=== PATIENT | male | born 1945 | race Caucasian/White ===

== ENCOUNTER 2018-02-01 11:19 | Outpatient (CLI) | payer MEDICARE | END 2018-02-01 11:20 | disposition home or self-care (01) | LOC: LABHHL 11:19 | PROVIDERS: ATTEND Internal Medicine | DX: E11.9 Type 2 diabetes mellitus without complications (principal); I10 Essential (primary) hypertension | CPT/HCPCS: 36415; 83036 ==

== ENCOUNTER 2018-12-17 09:09 | Outpatient (CLI) | payer MEDICARE ==
[2018-12-17 11:38] LABS: Chol/HDL Ratio 3.79 %
== END 2018-12-17 09:10 | disposition home or self-care (01) ==
LOC: LAB 09:09
PROVIDERS: ATTEND Internal Medicine
DX: Z00.01 Encounter for general adult medical examination with abnormal findings (principal); I10 Essential (primary) hypertension; E11.9 Type 2 diabetes mellitus without complications; E78.5 Hyperlipidemia, unspecified
CPT/HCPCS: 36415; 80061; 83036

== ENCOUNTER 2019-04-07 08:16 | Outpatient (CLI) | payer MEDICARE ==
[2019-04-07 09:19] LABS: Hematocrit 43.1 % (35.5-45.6); Hemoglobin 14.7 gm/dl (11.8-15.2); Mean Corpuscular HGB Conc 34 % (32-34); Mean Corpuscular Volume 89 fl (84-94); Platelet Count 185 K/mm3 (140-440); Red Blood Count 4.82 M/mm3 (3.65-5.03); Red Cell Distribution Width 13.6 % (13.2-15.2)
[2019-04-07 09:31] LABS: Albumin 4.1 g/dL (3.9-5); Chol/HDL Ratio 4.35 %
[2019-04-11 14:00] LABS: Vitamin D, 25-OH, D2 <4 ng/mL
== END 2019-04-07 08:17 | disposition home or self-care (01) ==
LOC: LAB 08:16
PROVIDERS: ATTEND Internal Medicine
DX: Z13.21 Encounter for screening for nutritional disorder (principal); Z12.5 Encounter for screening for malignant neoplasm of prostate; E11.39 Type 2 diabetes mellitus with other diabetic ophthalmic complication; E78.5 Hyperlipidemia, unspecified; I10 Essential (primary) hypertension
CPT/HCPCS: 36415; 80053; 80061; 82306; 82607; 83036; 84153; 84443; 85027

== ENCOUNTER 2019-05-10 14:44 | Outpatient (CLI) | payer MEDICARE ==
--- NOTE | 2019-05-10 15:25 | XRay Report ---
LEFT WRIST, 3 VIEWS INDICATION: Pain in left wrist. COMPARISON: None. IMPRESSION: Mild osteopenia. No acute osseous findings or joint pathology is identified. There is m ild diffuse soft tissue swelling. Signer Name: Tye Finley Jr, MD Signed: 05/10/2019 3:21 PM Workstation Name: [id number]
== END 2019-05-10 14:45 | disposition home or self-care (01) ==
LOC: XRAY 14:44
PROVIDERS: ATTEND Internal Medicine
DX: M85.842 Other specified disorders of bone density and structure, left hand (principal); I10 Essential (primary) hypertension

== ENCOUNTER 2019-08-18 09:19 | Outpatient (CLI) | payer MEDICARE | END 2019-08-18 09:20 | disposition home or self-care (01) | LOC: LAB 09:19 | PROVIDERS: ATTEND Internal Medicine | DX: E78.5 Hyperlipidemia, unspecified (principal); R94.6 Abnormal results of thyroid function studies; E11.9 Type 2 diabetes mellitus without complications | CPT/HCPCS: 36415; 80061; 83036; 84439; 84443 ==

== ENCOUNTER 2020-05-14 10:06 | Outpatient (CLI) | payer MEDICARE ==
[2020-05-14] MEDS ORDERED: LIDOCAINE (4%) 40 MG/ML TOPICAL SOLN 50 ML BOTTLE TP ONE (11:00)
== END 2020-05-14 10:07 | disposition home or self-care (01) ==
LOC: WOUND 10:06
PROVIDERS: ATTEND Surgery
DX: E11.622 Type 2 diabetes mellitus with other skin ulcer (principal); L89.154 Pressure ulcer of sacral region, stage 4; L98.422 Non-pressure chronic ulcer of back with fat layer exposed; E11.621 Type 2 diabetes mellitus with foot ulcer; L97.522 Non-pressure chronic ulcer of other part of left foot with fat layer exposed; I10 Essential (primary) hypertension; E78.5 Hyperlipidemia, unspecified; Z79.4 Long term (current) use of insulin

== ENCOUNTER 2020-05-28 08:53 | Outpatient (CLI) | payer MEDICARE ==
[2020-05-28] MEDS ORDERED: LIDOCAINE (4%) 40 MG/ML TOPICAL SOLN 50 ML BOTTLE TP ONE (10:00)
[2020-05-28] MEDS ORDERED: LIDOCAINE (1%) 10 MG/1 ML VIAL 20 ML MDV INFILTRATI NR (10:00)
[2020-05-28] MEDS ORDERED: SILVER NITRATE APPLICATOR 1 EA TP NR (10:04)
== END 2020-05-28 08:54 | disposition home or self-care (01) ==
LOC: WOUND 08:53
PROVIDERS: ATTEND Surgery
DX: E11.622 Type 2 diabetes mellitus with other skin ulcer (principal); L89.154 Pressure ulcer of sacral region, stage 4; L98.422 Non-pressure chronic ulcer of back with fat layer exposed; I10 Essential (primary) hypertension; E78.5 Hyperlipidemia, unspecified; Z79.4 Long term (current) use of insulin
CPT/HCPCS: 97605

== ENCOUNTER 2020-06-04 09:20 | Outpatient (CLI) | payer MEDICARE ==
[2020-06-04] MEDS ORDERED: LIDOCAINE (4%) 40 MG/ML TOPICAL SOLN 50 ML BOTTLE TP NR (09:29)
== END 2020-06-04 09:21 | disposition home or self-care (01) ==
LOC: WOUND 09:20
PROVIDERS: ATTEND Surgery
DX: E11.622 Type 2 diabetes mellitus with other skin ulcer (principal); L89.154 Pressure ulcer of sacral region, stage 4; L98.422 Non-pressure chronic ulcer of back with fat layer exposed; I10 Essential (primary) hypertension; E78.5 Hyperlipidemia, unspecified; Z79.4 Long term (current) use of insulin
CPT/HCPCS: 97605

== ENCOUNTER 2020-06-11 10:32 | Outpatient (CLI) | payer MEDICARE ==
[2020-06-11] MEDS ORDERED: LIDOCAINE (4%) 40 MG/ML TOPICAL SOLN 50 ML BOTTLE TP ONE (10:38)
== END 2020-06-11 10:33 | disposition home or self-care (01) ==
LOC: WOUND 10:32
PROVIDERS: ATTEND Surgery
DX: E11.622 Type 2 diabetes mellitus with other skin ulcer (principal); L89.314 Pressure ulcer of right buttock, stage 4; L98.415 Non-pressure chronic ulcer of buttock with muscle involvement without evidence of necrosis; L89.154 Pressure ulcer of sacral region, stage 4; L98.421 Non-pressure chronic ulcer of back limited to breakdown of skin; I10 Essential (primary) hypertension; E78.5 Hyperlipidemia, unspecified; Z79.4 Long term (current) use of insulin
CPT/HCPCS: 97605

== ENCOUNTER 2020-06-15 09:25 | Outpatient (CLI) | payer MEDICARE | END 2020-06-15 09:26 | disposition home or self-care (01) | LOC: WOUND 09:25 | PROVIDERS: ATTEND Surgery | DX: E11.622 Type 2 diabetes mellitus with other skin ulcer (principal); L89.314 Pressure ulcer of right buttock, stage 4; L98.415 Non-pressure chronic ulcer of buttock with muscle involvement without evidence of necrosis; L89.154 Pressure ulcer of sacral region, stage 4; L98.421 Non-pressure chronic ulcer of back limited to breakdown of skin; I10 Essential (primary) hypertension; E78.5 Hyperlipidemia, unspecified; Z79.4 Long term (current) use of insulin | CPT/HCPCS: 97605 ==

== ENCOUNTER 2020-06-18 09:29 | Outpatient (CLI) | payer MEDICARE ==
[2020-06-18] MEDS ORDERED: LIDOCAINE (4%) 40 MG/ML TOPICAL SOLN 50 ML BOTTLE TP SCH (10:30)
== END 2020-06-18 09:30 | disposition home or self-care (01) ==
LOC: WOUND 09:29
PROVIDERS: ATTEND Surgery
DX: E11.622 Type 2 diabetes mellitus with other skin ulcer (principal); L89.314 Pressure ulcer of right buttock, stage 4; L98.415 Non-pressure chronic ulcer of buttock with muscle involvement without evidence of necrosis; L89.154 Pressure ulcer of sacral region, stage 4; L98.421 Non-pressure chronic ulcer of back limited to breakdown of skin; I10 Essential (primary) hypertension; E78.5 Hyperlipidemia, unspecified; Z79.4 Long term (current) use of insulin
CPT/HCPCS: 97605

== ENCOUNTER 2020-06-22 08:58 | Outpatient (CLI) | payer MEDICARE | END 2020-06-22 08:59 | disposition home or self-care (01) | LOC: WOUND 08:58 | PROVIDERS: ATTEND Surgery | DX: E11.622 Type 2 diabetes mellitus with other skin ulcer (principal); L89.314 Pressure ulcer of right buttock, stage 4; L98.415 Non-pressure chronic ulcer of buttock with muscle involvement without evidence of necrosis; L89.154 Pressure ulcer of sacral region, stage 4; L98.421 Non-pressure chronic ulcer of back limited to breakdown of skin; I10 Essential (primary) hypertension; E78.5 Hyperlipidemia, unspecified; Z79.4 Long term (current) use of insulin | CPT/HCPCS: 97605 ==

== ENCOUNTER 2020-06-25 09:27 | Outpatient (CLI) | payer MEDICARE ==
[2020-06-25] MEDS ORDERED: LIDOCAINE (4%) 40 MG/ML TOPICAL SOLN 50 ML BOTTLE TP ONE (10:01)
== END 2020-06-25 09:28 | disposition home or self-care (01) ==
LOC: WOUND 09:27
PROVIDERS: ATTEND Surgery
DX: E11.622 Type 2 diabetes mellitus with other skin ulcer (principal); L89.314 Pressure ulcer of right buttock, stage 4; L98.415 Non-pressure chronic ulcer of buttock with muscle involvement without evidence of necrosis; L89.154 Pressure ulcer of sacral region, stage 4; L98.421 Non-pressure chronic ulcer of back limited to breakdown of skin; I10 Essential (primary) hypertension; E78.5 Hyperlipidemia, unspecified; Z79.4 Long term (current) use of insulin
CPT/HCPCS: 97605

== ENCOUNTER 2020-06-29 08:52 | Outpatient (CLI) | payer MEDICARE | END 2020-06-29 08:53 | disposition home or self-care (01) | LOC: WOUND 08:52 | PROVIDERS: ATTEND Surgery | DX: E11.622 Type 2 diabetes mellitus with other skin ulcer (principal); L89.314 Pressure ulcer of right buttock, stage 4; L98.415 Non-pressure chronic ulcer of buttock with muscle involvement without evidence of necrosis; L98.421 Non-pressure chronic ulcer of back limited to breakdown of skin; I10 Essential (primary) hypertension; E78.5 Hyperlipidemia, unspecified; Z79.4 Long term (current) use of insulin | CPT/HCPCS: 97605 ==

== ENCOUNTER 2020-07-02 09:55 | Outpatient (CLI) | payer MEDICARE ==
[2020-07-02] MEDS ORDERED: LIDOCAINE (4%) 40 MG/ML TOPICAL SOLN 50 ML BOTTLE TP SCH (09:58)
== END 2020-07-02 09:56 | disposition home or self-care (01) ==
LOC: WOUND 09:55
PROVIDERS: ATTEND Surgery
DX: E11.622 Type 2 diabetes mellitus with other skin ulcer (principal); L89.314 Pressure ulcer of right buttock, stage 4; L98.412 Non-pressure chronic ulcer of buttock with fat layer exposed; I10 Essential (primary) hypertension; E78.5 Hyperlipidemia, unspecified; Z79.4 Long term (current) use of insulin
CPT/HCPCS: 97605

== ENCOUNTER 2020-07-06 08:19 | Outpatient (CLI) | payer MEDICARE | END 2020-07-06 08:20 | disposition home or self-care (01) | LOC: WOUND 08:19 | PROVIDERS: ATTEND Surgery | DX: E11.622 Type 2 diabetes mellitus with other skin ulcer (principal); L89.314 Pressure ulcer of right buttock, stage 4; L98.412 Non-pressure chronic ulcer of buttock with fat layer exposed; I10 Essential (primary) hypertension; E78.5 Hyperlipidemia, unspecified; Z79.4 Long term (current) use of insulin | CPT/HCPCS: 97605 ==

== ENCOUNTER 2020-07-09 09:35 | Outpatient (CLI) | payer MEDICARE ==
[2020-07-09] MEDS ORDERED: LIDOCAINE (4%) 40 MG/ML TOPICAL SOLN 50 ML BOTTLE TP SCH (09:37)
== END 2020-07-09 09:36 | disposition home or self-care (01) ==
LOC: WOUND 09:35
PROVIDERS: ATTEND Surgery
DX: E11.622 Type 2 diabetes mellitus with other skin ulcer (principal); L89.314 Pressure ulcer of right buttock, stage 4; L98.412 Non-pressure chronic ulcer of buttock with fat layer exposed; L89.154 Pressure ulcer of sacral region, stage 4; L98.491 Non-pressure chronic ulcer of skin of other sites limited to breakdown of skin; I10 Essential (primary) hypertension; E78.5 Hyperlipidemia, unspecified; Z79.4 Long term (current) use of insulin
CPT/HCPCS: 97605

== ENCOUNTER 2020-07-13 09:10 | Outpatient (CLI) | payer MEDICARE | END 2020-07-13 09:11 | disposition home or self-care (01) | LOC: WOUND 09:10 | PROVIDERS: ATTEND Surgery | DX: E11.622 Type 2 diabetes mellitus with other skin ulcer (principal); L89.314 Pressure ulcer of right buttock, stage 4; L98.412 Non-pressure chronic ulcer of buttock with fat layer exposed; L89.154 Pressure ulcer of sacral region, stage 4; L98.491 Non-pressure chronic ulcer of skin of other sites limited to breakdown of skin; I10 Essential (primary) hypertension; E78.5 Hyperlipidemia, unspecified; Z79.4 Long term (current) use of insulin | CPT/HCPCS: 97605 ==

== ENCOUNTER 2020-07-16 10:09 | Outpatient (CLI) | payer MEDICARE ==
[2020-07-16] MEDS ORDERED: LIDOCAINE (4%) 40 MG/ML TOPICAL SOLN 50 ML BOTTLE TP ONE (10:36)
== END 2020-07-16 10:10 | disposition home or self-care (01) ==
LOC: WOUND 10:09
PROVIDERS: ATTEND Surgery
DX: E11.622 Type 2 diabetes mellitus with other skin ulcer (principal); L89.314 Pressure ulcer of right buttock, stage 4; L98.412 Non-pressure chronic ulcer of buttock with fat layer exposed; L89.154 Pressure ulcer of sacral region, stage 4; L98.491 Non-pressure chronic ulcer of skin of other sites limited to breakdown of skin; I10 Essential (primary) hypertension; E78.5 Hyperlipidemia, unspecified; Z79.4 Long term (current) use of insulin
CPT/HCPCS: 97605

== ENCOUNTER 2020-07-20 08:52 | Outpatient (CLI) | payer MEDICARE | END 2020-07-20 08:53 | disposition home or self-care (01) | LOC: WOUND 08:52 | PROVIDERS: ATTEND Surgery | DX: E11.622 Type 2 diabetes mellitus with other skin ulcer (principal); L89.314 Pressure ulcer of right buttock, stage 4; L98.412 Non-pressure chronic ulcer of buttock with fat layer exposed; L89.154 Pressure ulcer of sacral region, stage 4; L98.491 Non-pressure chronic ulcer of skin of other sites limited to breakdown of skin; I10 Essential (primary) hypertension; E78.5 Hyperlipidemia, unspecified; Z79.4 Long term (current) use of insulin | CPT/HCPCS: 97605 ==

== ENCOUNTER 2020-07-23 09:26 | Outpatient (CLI) | payer MEDICARE ==
[2020-07-23] MEDS ORDERED: LIDOCAINE (4%) 40 MG/ML TOPICAL SOLN 50 ML BOTTLE TP ONE (10:30)
== END 2020-07-23 09:27 | disposition home or self-care (01) ==
LOC: WOUND 09:26
PROVIDERS: ATTEND Surgery
DX: E11.622 Type 2 diabetes mellitus with other skin ulcer (principal); L89.314 Pressure ulcer of right buttock, stage 4; L98.412 Non-pressure chronic ulcer of buttock with fat layer exposed; L89.154 Pressure ulcer of sacral region, stage 4; L98.491 Non-pressure chronic ulcer of skin of other sites limited to breakdown of skin; I10 Essential (primary) hypertension; E78.5 Hyperlipidemia, unspecified; Z79.4 Long term (current) use of insulin
CPT/HCPCS: 97605

== ENCOUNTER 2020-07-25 08:13 | Outpatient (CLI) | payer MEDICARE | END 2020-07-25 08:14 | disposition home or self-care (01) | LOC: WOUND 08:13 | PROVIDERS: ATTEND Surgery | DX: E11.622 Type 2 diabetes mellitus with other skin ulcer (principal); L89.314 Pressure ulcer of right buttock, stage 4; L98.412 Non-pressure chronic ulcer of buttock with fat layer exposed; L89.154 Pressure ulcer of sacral region, stage 4; L98.491 Non-pressure chronic ulcer of skin of other sites limited to breakdown of skin; I10 Essential (primary) hypertension; E78.5 Hyperlipidemia, unspecified; Z79.4 Long term (current) use of insulin | CPT/HCPCS: 97605 ==

== ENCOUNTER 2020-07-30 09:17 | Outpatient (CLI) | payer MEDICARE | END 2020-07-30 09:18 | disposition home or self-care (01) | LOC: WOUND 09:17 | PROVIDERS: ATTEND Surgery | DX: E11.622 Type 2 diabetes mellitus with other skin ulcer (principal); L89.314 Pressure ulcer of right buttock, stage 4; L98.412 Non-pressure chronic ulcer of buttock with fat layer exposed; L89.154 Pressure ulcer of sacral region, stage 4; L98.491 Non-pressure chronic ulcer of skin of other sites limited to breakdown of skin; I10 Essential (primary) hypertension; E78.5 Hyperlipidemia, unspecified; Z79.4 Long term (current) use of insulin | CPT/HCPCS: 97605 ==

== ENCOUNTER 2020-08-03 08:42 | Outpatient (CLI) | payer MEDICARE | END 2020-08-03 08:43 | disposition home or self-care (01) | LOC: WOUND 08:42 | PROVIDERS: ATTEND Surgery | DX: E11.622 Type 2 diabetes mellitus with other skin ulcer (principal); L89.314 Pressure ulcer of right buttock, stage 4; L98.412 Non-pressure chronic ulcer of buttock with fat layer exposed; L89.154 Pressure ulcer of sacral region, stage 4; L98.491 Non-pressure chronic ulcer of skin of other sites limited to breakdown of skin; I10 Essential (primary) hypertension; E78.5 Hyperlipidemia, unspecified; Z79.4 Long term (current) use of insulin | CPT/HCPCS: 97605 ==

== ENCOUNTER 2020-08-06 09:19 | Outpatient (CLI) | payer MEDICARE ==
[2020-08-06] MEDS ORDERED: LIDOCAINE (4%) 40 MG/ML TOPICAL SOLN 50 ML BOTTLE TP ONE (09:38)
== END 2020-08-06 09:20 | disposition home or self-care (01) ==
LOC: WOUND 09:19
PROVIDERS: ATTEND Surgery
DX: E11.622 Type 2 diabetes mellitus with other skin ulcer (principal); L89.314 Pressure ulcer of right buttock, stage 4; L98.412 Non-pressure chronic ulcer of buttock with fat layer exposed; L89.154 Pressure ulcer of sacral region, stage 4; L98.492 Non-pressure chronic ulcer of skin of other sites with fat layer exposed; I10 Essential (primary) hypertension; E78.5 Hyperlipidemia, unspecified; Z79.4 Long term (current) use of insulin
CPT/HCPCS: 97605

== ENCOUNTER 2020-08-09 08:01 | Outpatient (CLI) | payer MEDICARE | END 2020-08-09 08:02 | disposition home or self-care (01) | LOC: WOUND 08:01 | PROVIDERS: ATTEND Surgery | DX: E11.622 Type 2 diabetes mellitus with other skin ulcer (principal); L89.314 Pressure ulcer of right buttock, stage 4; L98.412 Non-pressure chronic ulcer of buttock with fat layer exposed; L89.154 Pressure ulcer of sacral region, stage 4; L98.492 Non-pressure chronic ulcer of skin of other sites with fat layer exposed; I10 Essential (primary) hypertension; E78.5 Hyperlipidemia, unspecified; Z79.4 Long term (current) use of insulin | CPT/HCPCS: 97605 ==

== ENCOUNTER 2020-08-13 09:12 | Outpatient (CLI) | payer MEDICARE | END 2020-08-13 09:13 | disposition home or self-care (01) | LOC: WOUND 09:12 | PROVIDERS: ATTEND Surgery | DX: E11.622 Type 2 diabetes mellitus with other skin ulcer (principal); L89.314 Pressure ulcer of right buttock, stage 4; L98.412 Non-pressure chronic ulcer of buttock with fat layer exposed; L89.154 Pressure ulcer of sacral region, stage 4; L98.492 Non-pressure chronic ulcer of skin of other sites with fat layer exposed; I10 Essential (primary) hypertension; E78.5 Hyperlipidemia, unspecified; Z79.4 Long term (current) use of insulin ==

== ENCOUNTER 2020-08-20 09:05 | Outpatient (CLI) | payer MEDICARE ==
[2020-08-20] MEDS ORDERED: LIDOCAINE (4%) 40 MG/ML TOPICAL SOLN 50 ML BOTTLE TP ONE (09:25)
== END 2020-08-20 09:06 | disposition home or self-care (01) ==
LOC: WOUND 09:05
PROVIDERS: ATTEND Surgery
DX: E11.622 Type 2 diabetes mellitus with other skin ulcer (principal); L89.314 Pressure ulcer of right buttock, stage 4; L98.412 Non-pressure chronic ulcer of buttock with fat layer exposed; L89.154 Pressure ulcer of sacral region, stage 4; L98.492 Non-pressure chronic ulcer of skin of other sites with fat layer exposed; I10 Essential (primary) hypertension; E78.5 Hyperlipidemia, unspecified; Z79.4 Long term (current) use of insulin

== ENCOUNTER 2020-09-03 09:30 | Outpatient (CLI) | payer MEDICARE ==
[2020-09-03] MEDS ORDERED: LIDOCAINE (4%) 40 MG/ML TOPICAL SOLN 50 ML BOTTLE TP SCH (10:00)
== END 2020-09-03 09:31 | disposition home or self-care (01) ==
LOC: WOUND 09:30
PROVIDERS: ATTEND Surgery
DX: E11.622 Type 2 diabetes mellitus with other skin ulcer (principal); L89.314 Pressure ulcer of right buttock, stage 4; L98.412 Non-pressure chronic ulcer of buttock with fat layer exposed; L89.154 Pressure ulcer of sacral region, stage 4; L98.492 Non-pressure chronic ulcer of skin of other sites with fat layer exposed; I10 Essential (primary) hypertension; E78.5 Hyperlipidemia, unspecified; Z79.4 Long term (current) use of insulin

== ENCOUNTER 2020-09-17 08:29 | Outpatient (CLI) | payer MEDICARE | END 2020-09-17 08:30 | disposition home or self-care (01) | LOC: WOUND 08:29 | PROVIDERS: ATTEND Surgery | DX: E11.622 Type 2 diabetes mellitus with other skin ulcer (principal); L89.314 Pressure ulcer of right buttock, stage 4; L98.418 Non-pressure chronic ulcer of buttock with other specified severity; L89.154 Pressure ulcer of sacral region, stage 4; L98.498 Non-pressure chronic ulcer of skin of other sites with other specified severity; I10 Essential (primary) hypertension; E78.5 Hyperlipidemia, unspecified; Z79.4 Long term (current) use of insulin | CPT/HCPCS: 99213; G0463 ==

== ENCOUNTER 2020-10-08 08:49 | Outpatient (CLI) | payer MEDICARE | END 2020-10-08 08:50 | disposition home or self-care (01) | LOC: LAB 08:49 | PROVIDERS: ATTEND Internal Medicine | DX: E11.9 Type 2 diabetes mellitus without complications (principal) | CPT/HCPCS: 36415; 83036 ==